=== PATIENT | female | born 1940 | race Two or more races ===

== ENCOUNTER 2020-05-19 06:32 | Day surgery (SDC) | payer OTHER ==
[~2020-05-19] VITALS: Ht 149.9 cm; Wt 53.1 kg
[~2020-05-19 06:32] MED LIST: BIOTIN5000 MCG PO; BONIVA150 MG PO; ENALAPRIL MALEAT5 MG PO; LEVOTHYROXINE25 MCG PO; PRILOSEC OTC20 MG PO; VITAMIN B122500 MC1 PO; VITAMIN D PO
== END 2020-05-19 13:00 | disposition home or self-care (01) ==
LOC: CIR.AMB 06:32 → SURH 07:00 → O/R 08:32 → EDSTATUS 11:15 → SURH 11:15 → CIR.AMB 13:00 → O/R 16:05
PROVIDERS: ATTEND Surgery
DX: C18.0 Malignant neoplasm of cecum (principal); R19.4 Change in bowel habit; R59.0 Localized enlarged lymph nodes; Z53.8 Procedure and treatment not carried out for other reasons; T88.4XXA Failed or difficult intubation, initial encounter

== ENCOUNTER → 2020-05-23 | Outpatient (CLI) | payer OTHER ==
[~2020-05-23] MED LIST changes: +FAMOTIDINE40 MG; +LIPO-FLAVONOID1 EACH; +OMEPRAZOLE20 MG; +VITAMIN D21250 MCG; +VITAMIN D310 MC5
== END | disposition home or self-care (01) ==
LOC: OFIC 805 11:34
PROVIDERS: ATTEND Otolaryngology
DX: J38.4 Edema of larynx (principal); J98.8 Other specified respiratory disorders

== ENCOUNTER 2020-05-25 10:49 | Inpatient (IN) | payer OTHER ==
[~2020-05-25 10:49] MED LIST changes: -FAMOTIDINE40 MG; -LIPO-FLAVONOID1 EACH; -OMEPRAZOLE20 MG; -VITAMIN D21250 MCG; -VITAMIN D310 MC5
[2020-05-25] MEDS ORDERED: LIPO-FLAVONOID1 EACH (11:35)
[2020-05-30] MEDS ORDERED: FAMOTIDINE40 MG (08:04)
[2020-05-30] MEDS ORDERED: OMEPRAZOLE20 MG (08:04)
[2020-05-30] MEDS ORDERED: VITAMIN D21250 MCG (08:08)
[2020-05-30] MEDS ORDERED: VITAMIN D310 MC5 (08:09)
[2020-06-09] MEDS ORDERED: PROTONIX40 MG PO (12:24)
[2020-06-09] MEDS ORDERED: HYOSCYAMINE0.125 M1 SL (12:24)
[2020-06-09] MEDS ORDERED: PYRIDOXINE HCL100 MG PO (12:24)
[2020-06-09] MEDS ORDERED: FLONASE16 GM NASAL (12:24)
[2020-06-09] MEDS ORDERED: ENALAPRIL MALEAT5 MG PO (12:24)
[2020-06-09] MEDS ORDERED: Neurin-Sl Tablet Sl SL (12:24)
[2020-06-09] MEDS ORDERED: BONIVA150 MG PO (12:24)
[2020-06-09] MEDS ORDERED: TRAMADOL HCL50 MG PO (12:24)
[2020-06-09] MEDS ORDERED: CARAFATE1 GM PO (12:24)
[2020-06-09] MEDS ORDERED: LORATADINE10 MG PO (12:24)
[2020-06-09] MEDS ORDERED: LEVOTHYROXINE25 MCG PO (12:24)
[2020-06-09] MEDS ORDERED: TOPROL XL25 M1 PO (12:28)
== END 2020-06-09 14:32 | disposition home or self-care (01) | DRG 330 ==
LOC: SURH 05-30 06:35 → O/R 05-30 06:35 → SURH 05-30 09:15
PROVIDERS: ADMIT Surgery; ATTEND Surgery
PROC: 07BC4ZX Excision of Pelvis Lymphatic, Percutaneous Endoscopic Approach, Diagnostic (ICD-10-PCS; 2020-05-30)
PROC: 3E0336Z Introduction of Nutritional Substance into Peripheral Vein, Percutaneous Approach (ICD-10-PCS; 2020-05-30)
PROC: 0DTF4ZZ Resection of Right Large Intestine, Percutaneous Endoscopic Approach (ICD-10-PCS; principal; 2020-05-30 09:15)
PROC: B24BZZZ Ultrasonography of Heart with Aorta (ICD-10-PCS; 2020-06-06)
PROC: BW21YZZ Computerized Tomography (CT Scan) of Abdomen and Pelvis using Other Contrast (ICD-10-PCS; 2020-06-07)
PROC: 4A033R1 Measurement of Arterial Saturation, Peripheral, Percutaneous Approach (ICD-10-PCS; 2020-06-07)
PROC: 4A12X4Z Monitoring of Cardiac Electrical Activity, External Approach (ICD-10-PCS; 2020-06-07)
DX: C18.2 Malignant neoplasm of ascending colon (principal); K56.7 Ileus, unspecified; E03.9 Hypothyroidism, unspecified; D50.0 Iron deficiency anemia secondary to blood loss (chronic); I12.9 Hypertensive chronic kidney disease with stage 1 through stage 4 chronic kidney disease, or unspecified chronic kidney disease; N18.32 Chronic kidney disease, stage 3b; R33.8 Other retention of urine; R77.8 Other specified abnormalities of plasma proteins